=== PATIENT | female | born 1935 | race Caucasian/White ===

== ENCOUNTER 2018-06-30 13:05 | Observation (INO) | payer MEDICARE, BC ==
--- NOTE | 2018-06-30 14:49 | ER Document Report ---
ED General - General Chief Complaint: Chest Pain Stated Complaint: CHEST PAIN Time Seen by Provider: 06/30/18 14:31 TRAVEL OUTSIDE OF THE [place] IN LAST 30 DAYS: No - HPI Notes: Patient is an 82-year-old female with a history of coronary artery disease, possible stent placements in the past, hypertension, recent diagnosis of pneumonia 3 weeks ago who presents to the ED complaining of generalized mid abdominal pain that has been constant over 3 weeks. Patient also complains of chest pain only with ambulation over the last 2-3 weeks as well. Patient was evaluated at her primary care doctor's office today and want her evaluated here in the emergency department. Patient states that she did have a CT scan and workup in the past, but cannot recall the date for her abdominal pain. Patient states that initially started with diarrhea that has turned into normal stool as of now. She is still able to eat and drink without any difficulties otherwise. She is urinating a little more frequently than usual for her. Patient states that she also feels generalized weakness. 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 No other concerns or complaints at this time. Denies any headache, fever, neck pain, changes in vision/speech/mentation/hearing, URI , sore throat, palpitations, syncope, cough, shortness of breath, wheeze, dyspnea, nausea/vomiting/diarrhea, urinary retention, hematuria, back pain, loss of control of bowel or bladder, numbness/tingling, muscle paralysis, or rash. - Related Data Allergies/Adverse Reactions: hydromorphone [From Dilaudid] Allergy (Verified 07/10/16 07:34) Confusion Past Medical History - Social History Smoking Status: Former Smoker - when she was young Family History: Reviewed & Not Pertinent - Past Medical History Cardiac Medical History: Reports: Hx Heart Attack - 20 YEARS AGO WITH STENT, Hx Hypertension Pulmonary Medical History: Denies: Hx Asthma Neurological Medical History: Denies: Hx Cerebrovascular Accident, Hx Seizures GI Medical History: Reports: Hx Hiatal Hernia. Denies: Hx Hepatitis, Hx Ulcer Infectious Medical History: Denies: Hx Hepatitis Past Surgical History: Reports: Hx Hysterectomy. Denies: Hx Mastectomy, Hx Open Heart Surgery, Hx Pacemaker Review of Systems - Review of Systems -: Yes All other systems reviewed and negative Physical Exam - Vital signs Vitals: Temp Pulse Resp BP Pulse Ox 97.6 F 94 24 H 207/97 H 94 06/30/18 13:26 06/30/18 13:26 06/30/18 13:26 06/30/18 13:26 06/30/18 13:26 - Notes Notes: PHYSICAL EXAMINATION: GENERAL: Well-appearing, well-nourished and in no acute distress. A&Ox4. Answers questions appropriately. HEAD: Atraumatic, normocephalic. EYES: Pupils equal round and reactive to light, extraocular movements intact, sclera anicteric, conjunctiva are normal. ENT: Nares patent and without discharge. oropharynx clear without exudates. No tonsilar hypertrophy or erythema. Moist mucous membranes. NECK: Normal range of motion, supple without lymphadenopathy LUNGS: bibasilar rales, no wheezing HEART: irregular without murmurs, rubs, gallops. ABDOMEN: Soft, nondistended abdomen. No guarding, no rebound. Normal bowel sounds present. No CVA tenderness bilaterally. + tenderness, generalized. Musculoskeletal: FROM to passive/active. Strength 5+/5. Sandra neg. No asymmetry to LE's. Extremities: No cyanosis, clubbing, or edema b/l. Peripheral pulses 2+. Capillary refill less than 3 seconds. NEUROLOGICAL: Normal speech, normal gait. PSYCH: Normal mood, normal affect. SKIN: Warm, Dry, normal turgor, no rashes or lesions noted. Course - Re-evaluation Re-evalutation: 06/30/18 15:45 Spoke with the Angelita Shell PA-C that sent her for eval today. Pt has a h/o CKD prev Cr of 1.8, CAD with stent placement, and chronic abd pain. Angelita states that she had this same abd pain for several months and she ran a CT scan in May that was unremarkable. It is described as a general pain, but pt has declined colonoscopy and consults with GI. 06/30/18 17:34 I did get information from [place]. Pt does have a h/o CHF with EF of 55-60% in January 2017 and was 65% in 2014. She has Mitral regurge and last BNP in August 2017 was 322. Troponin in 2012- was 0.04. 06/30/18 17:43 Pt is having exertional dyspnea and CP, but nothing at rest. I did review with Dr. Calixto and we will plan to admit for CP obs/angina, elevated BNP in setting of CHF/CAD, if the delta trop is acceptable. 06/30/18 18:20 Delta trop negative. Spoke with Dr. Hairston who [facility]. Calixto did not see anything acute on abd/plev CT. Pt does go tachycardic with ambulation into the 120's and becomes symptomatic so we will not be performing any ambulatory O2 testing. Pt asymptomatic otherwise at rest. Abd CT negative. - Vital Signs Vital signs: Temp Pulse Resp BP Pulse Ox 97.6 F 94 16 142/65 H 96 06/30/18 13:26 06/30/18 13:26 06/30/18 18:31 06/30/18 18:31 06/30/18 18:31 - Laboratory Result Diagrams: 06/30/18 14:36 06/30/18 14:36 Laboratory results interpreted by me: 06/30/18 06/30/18 06/30/18 14:36 14:36 14:36 RDW 14.3 H Potassium 3.5 L Carbon Dioxide 31 H BUN 25 H Creatinine 1.67 H Est GFR ( Amer) 35 L Est GFR (Non-Af Amer) 29 L Direct Bilirubin 0.6 H NT-Pro-B Natriuret Pep 8130 H Urine Protein Urine Ketones 06/30/18 15:32 RDW Potassium Carbon Dioxide BUN Creatinine Est GFR ( Amer) Est GFR (Non-Af Amer) Direct Bilirubin NT-Pro-B Natriuret Pep Urine Protein >=500 H Urine Ketones TRACE H Discharge - Discharge Clinical Impression: Exertional chest pain CHF (congestive heart failure) Qualifiers: Heart failure type: unspecified Heart failure chronicity: acute on chronic Qualified Code(s): I50.9 - Heart failure, unspecified Chest pain Qualifiers: Chest pain type: unspecified Qualified Code(s): R07.9 - Chest pain, unspecified Condition: Stable Disposition: ADMITTED INPATIENT Admitting Provider: Hospitalist - Dr. Hairston Unit Admitted: Telemetry
[2018-06-30 14:58] LABS: ABSOLUTE LYMPHOCYTES (AUTO) 1.1 10^3/uL (0.5-4.7); ABSOLUTE MONOCYTES (AUTO) 0.7 10^3/uL (0.1-1.4); BASOPHILS % (AUTO) 0.8 % (0-2); EOSINOPHILS % (AUTO) 0.4 % (0-6); HEMATOCRIT 39.3 % (36.0-47.0); HEMOGLOBIN 13.2 g/dL (12.0-15.5); MEAN CORPUSCULAR HEMOGLOBIN 30.9 pg (27.0-33.4); MEAN CORPUSCULAR HGB CONC 33.7 g/dL (32.0-36.0); MEAN CORPUSCULAR VOLUME 92 fl (80-97); MONOCYTES % (AUTO) 12.1 % (3-13); PLATELET COUNT 174 10^3/uL (150-450); RED BLOOD COUNT 4.29 10^6/uL (3.72-5.28); RED CELL DISTRIBUTION WIDTH 14.3 % (11.5-14.0); SEGMENTED NEUTROPHILS % (AUTO) 67.7 % (42-78); TOTAL CELLS COUNTED % (AUTO) 100 %; WHITE BLOOD COUNT 5.9 10^3/uL (4.0-10.5)
[2018-06-30 15:17] LABS: ALANINE AMINOTRANSFERASE 14 U/L (9-52); ALBUMIN 3.7 g/dL (3.5-5.0); ALKALINE PHOSPHATASE 93 U/L (38-126); ANION GAP 13 (5-19); ASPARTATE AMINO TRANSFERASE 23 U/L (14-36); BILIRUBIN,DIRECT 0.6 mg/dL (0.0-0.4); BLOOD UREA NITROGEN 25 mg/dL (7-20); CALCIUM 9.7 mg/dL (8.4-10.2); CARBON DIOXIDE 31 mmol/L (22-30); CHLORIDE 98 mmol/L (98-107); GLUCOSE 103 mg/dL (75-110); LIPASE 54.3 U/L (23-300); POTASSIUM 3.5 mmol/L (3.6-5.0); SODIUM 141.8 mmol/L (137-145); TOTAL PROTEIN 6.5 g/dL (6.3-8.2)
--- NOTE | 2018-06-30 15:32 | RADIOLOGY REPORT (SQ) ---
EXAM DESCRIPTION: CHEST SINGLE VIEW COMPLETED DATE/TIME: 06/30/2018 3:16 pm REASON FOR STUDY: CP COMPARISON: Chest x-ray from [facility] done earlier in the day at 1212 hours. EXAM PARAMETERS: NUMBER OF VIEWS: One view. TECHNIQUE: Single frontal radiographic view of the chest acquired. RADIATION DOSE: NA LIMITATIONS: None. FINDINGS: LUNGS AND PLEURA: No opacities, masses or pneumothorax. No pleural effusion. MEDIASTINUM AND HILAR STRUCTURES: No masses. Contour normal. HEART AND VASCULAR STRUCTURES: Heart normal in size. Normal vasculature. BONES: No acute findings. HARDWARE: None in the chest. OTHER: No other significant finding. IMPRESSION: NO ACUTE RADIOGRAPHIC FINDING IN THE CHEST. TECHNICAL DOCUMENTATION: JOB ID: [id number] [employer]- All Rights Reserved Reading location - IP/workstation name: [email or web address]
[2018-06-30 15:41] LABS: TROPONIN I 0.093 ng/mL
[2018-06-30 15:53] LABS: APPEARANCE,URINE SLIGHTLY-CLOUDY; BILIRUBIN,URINE NEGATIVE (NEGATIVE); COLOR,URINE YELLOW; GLUCOSE, URINE NEGATIVE (NEGATIVE); KETONES,URINE TRACE mg/dL (NEGATIVE); LEUKOCYTE ESTERASE,URINE NEGATIVE (NEGATIVE); NITRITE,URINE NEGATIVE (NEGATIVE); PROTEIN,URINE >=500 mg/dL (NEGATIVE); URINE SPECIFIC GRAVITY 1.022; UROBILINOGEN,URINE NEGATIVE mg/dL (<2.0)
[2018-06-30] MEDS ORDERED: CLONIDINE HCL 0.1 MG TABLET PO ONE (17:10)
[2018-06-30] MEDS ORDERED: ATENOLOL 50 MG TABLET PO ONE (17:19)
[2018-06-30] MEDS ORDERED: FUROSEMIDE INJ/PF 20 MG/2 ML SDV IV ONE (17:36)
[2018-06-30] MEDS ORDERED: NORMAL SALINE 1000 ML 1,000 ML IV ONE (18:40)
--- NOTE | 2018-06-30 18:42 | RADIOLOGY REPORT (SQ) ---
EXAM DESCRIPTION: CT ABD/PELVIS WITH IV ORAL COMPLETED DATE/TIME: 06/30/2018 6:03 pm REASON FOR STUDY: abdominal pain COMPARISON: CT from [facility] dated 05/29/2018. TECHNIQUE: CT scan of the abdomen and pelvis performed using helical scanning technique with dynamic intravenous contrast injection. No oral contrast. Images reviewed with lung, soft tissue, and bone windows. Reconstructed coronal and sagittal MPR images reviewed. Delayed images for evaluation of the urinary system also acquired. All images stored on PACS. All CT scanners at this facility use dose modulation, iterative reconstruction, and/or weight based d osing when appropriate to reduce radiation dose to as low as reasonably achievable (ALARA). [facility]: Dose Right [facility]: CareDose [facility]: Dose Right [facility]: Teradose 4D [facility]: Car[employer] Global CONTRAST TYPE AND DOSE: contrast/concentration: Isovue 350.00 mg/ml; Total Contrast Delivered: 71.0 ml; Total Saline Delivered: 57.0 ml RENAL FUNCTION: BUN 25 creatinine 1.67. RADIATION DOSE: CT Rad equipment meets quality standard of care and radiation dose reduction techniq ues were employed. CTDIvol: 7.3 - 10.2 mGy. DLP: 914 mGy-cm.. LIMITATIONS: None. FINDINGS: LOWER CHEST: Stable chronic changes in the left lower lobe with focal volume loss and bron chiectasis. LIVER: Normal size. Stable hepatic cysts. No dilated ducts. SPLEEN: Normal size. No focal lesions. PANCREAS: No masses. No significant calcifications. No adjacent inflammation or peripancreatic fluid collections. Pancreatic duct not dilated. GALLBLADDER: No identified stones by CT criteria. No inflammatory changes to suggest cholecystitis. ADRENAL GLANDS: No significant masses or asymmetry. RIGHT KIDNEY AND URETER: No solid masses. No significant calcifications. No hydronephrosis or hyd roureter. LEFT KIDNEY AND URETER: Stable chronic atrophy. No solid masses. No significant calcifications. No hydronephrosis or hydroureter. AORTA AND VESSELS: Abdominal aorta upper limits of normal with maximum transverse measurement of 2.8 cm. Prior measurement 3.1 cm. No dissection. Renal arteries, SMA, celiac without stenosis. RETROPERITONEUM: No retroperitoneal adenopathy, hemorrhage or masses. BOWEL AND PERITONEAL CAVITY: Stable hiatal hernia. No masses or inflammatory changes. No free fluid or peritoneal masses. APPENDIX: Not visualized. PELVIS: No mass. No free fluid. Normal bladder. ABDOMINAL WALL: No masses. No hernias. BONES: No significant or acute findings. Chronic degenerative changes in the spine. Left hip prosth esis. OTHER: No other significant finding. IMPRESSION: 1. HIATAL HERNIA, UNCHANGED. 2. CHRONIC ATROPHY OF THE LEFT KIDNEY, UNCHANGED. 3. STABLE HEPATIC CYSTS. 4. STABLE CHRONIC CHANGES IN THE LEFT LUNG BASE. 5. NO ACUTE FINDINGS. TECHNICAL DOCUMENTATION: JOB ID: [id number] Quality ID # [id number]: Final reports with documentation of one or more dose reduction techniques (e.g., Au tomated exposure control, adjustment of the mA and/or kV according to patient size, use of iterative reconstruction technique) 2010 [employer]- All Rights Reserved Reading location - IP/workstation name: [email or web address]
[2018-06-30] MEDS ORDERED: NITROGLYCERIN 0.4 MG/TAB 25 TAB/BOTTLE SL PRN (19:02)
--- NOTE | 2018-06-30 19:40 | EKG REPORT ---
SEVERITY:- ABNORMAL ECG - SINUS RHYTHM LEFT ATRIAL ABNORMALITY LVH WITH SECONDARY REPOLARIZATION ABNORMALITY ANTERIOR Q WAVES, POSSIBLY DUE TO LVH LAFB : Confirmed by: Thomas Vu MD 30-Jun-2018 19:39:28
--- NOTE | 2018-06-30 19:41 | EKG REPORT ---
SEVERITY:- ABNORMAL ECG - SINUS RHYTHM LEFT ATRIAL ABNORMALITY LVH WITH SECONDARY REPOLARIZATION ABNORMALITY ANTERIOR Q WAVES, POSSIBLY DUE TO LVH : Confirmed by: Thomas Vu MD 30-Jun-2018 19:40:42
--- NOTE | 2018-06-30 19:42 | EKG REPORT ---
SEVERITY:- ABNORMAL ECG - SINUS TACHYCARDIA WITH IRREGULAR RATE 81-163 LEFT ATRIAL ABNORMALITY LVH WITH SECONDARY REPOLARIZATION ABNORMALITY ANTERIOR Q WAVES, POSSIBLY DUE TO LVH : Confirmed by: Thomas Vu MD 30-Jun-2018 19:41:02
[2018-06-30] MEDS ORDERED: POTASSIUM CHLORIDE 10 MEQ CAPSULE.ER PO ONE ×2 (20:00→23:00)
[2018-06-30] MEDS ORDERED: AMLODIPINE BESYLATE 5 MG TABLET PO ONE (20:00)
[2018-06-30] MEDS: NITROGLYCERIN 5 MG (0.2 MG/HR) PATCH.TD24 TD SCH (20:11)
[2018-06-30] MEDS: FUROSEMIDE 20 MG TABLET PO SCH (20:11)
[2018-06-30] MEDS ORDERED: ATORVASTATIN CALCIUM 80 MG TABLET PO SCH (22:00)
[2018-07-01 01:49] LABS: CREATINE KINASE MB 2.01 ng/mL (<4.55); TROPONIN I 0.09 ng/mL
--- NOTE | 2018-07-01 04:34 | PDOC H&P ---
History of Present Illness Admission Date/PCP: 06/30/18 18:45 Patient complains of: Chest pain History of Present Illness: EDWARD TUCKER is a 82 year old female with a past medical history of depression , congestive heart failure and coronary artery disease status post coronary artery bypass grafting remotely. Presents with chest pain occurring with exertion, does 3-5 intensity it is waxing and waning, nonradiating dull in nature associated with shortness of breath nausea without vomiting. Patient is unable to identify alleviating factors, denying recent cardiac stress test. In the emergency room she is found to have hypertensive urgency of 226/126, BNP of 8000, presumed acute renal failure with a creatinine of 1.6, EKG reveals sinus tachycardia and LVH by voltage. She receives atenolol and referred to the hospitalist for admission. Patient denies recent change in medications. Past Medical History Cardiac Medical History: Reports: Myocardial Infarction - 20 YEARS AGO WITH STENT, Hypertension Pulmonary Medical History: Denies: Asthma Neurological Medical History: Denies: Seizures GI Medical History: Reports: Hiatal Hernia Denies: Hepatitis Hematology: Denies: Anemia, Sickle Cell Disease Past Surgical History Past Surgical History: Reports: Coronary Artery Bypass Graft, Hysterectomy Denies: Amputation, Mastectomy, Pacemaker Social History Information Source: Patient Smoking Status: Former Smoker Last Time Smoked: 23 years ago Frequency of Alcohol Use: Rare Hx Recreational Drug Use: No Drugs: None Hx Prescription Drug Abuse: No - Advance Directive Resuscitation Status: Full Code Family History Family History: Hypertension Parental Family History Reviewed: Yes Children Family History Reviewed: Yes Sibling(s) Family History Reviewed.: Yes Medication/Allergy Home Medications: Besifloxacin HCl [Besivance 0.6% Oph Susp 5 ml] 1 drop OP ASDIR 06/19/16 Difluprednate [Durezol] 1 drop OP ASDIR 06/19/16 Nepafenac [Ilevro] 1 drop OP ASDIR 06/19/16 Paroxetine HCl [Paxil Cr 25 Mg Tab.Sr] 25 mg PO DAILY 06/19/16 Zolpidem Tartrate [Ambien 5 mg Tablet] 5 mg PO HSP PRN 06/19/16 Acetaminophen 1,000 mg PO ASDIR PRN 07/23/16 Atenolol/Chlorthalidone [Atenolol-Chlorthal 50-25 Tb] 1 tab PO DAILY 07/23/16 Dexlansoprazole [Dexilant 60 mg Capsule] 60 mg PO Q2DAYS 07/23/16 Esomeprazole Magnesium [Nexium] 20 mg PO Q2DAYS 07/23/16 Ibuprofen 200 mg PO ASDIR PRN 07/23/16 Allergies/Adverse Reactions: hydromorphone [From Dilaudid] Allergy (Verified 07/10/16 07:34) Confusion Review of Systems Constitutional: ABSENT: chills, fever(s), headache(s), weight gain, weight loss Eyes: ABSENT: visual disturbances Ears: ABSENT: hearing changes Cardiovascular: ABSENT: chest pain, dyspnea on exertion, edema, orthropnea, palpitations Respiratory: ABSENT: cough, hemoptysis Gastrointestinal: ABSENT: abdominal pain, constipation, diarrhea, hematemesis, hematochezia, nausea, vomiting Genitourinary: ABSENT: dysuria, hematuria Musculoskeletal: ABSENT: joint swelling Integumentary: ABSENT: rash, wounds Neurological: ABSENT: abnormal gait, abnormal speech, confusion, dizziness, focal weakness, syncope Psychiatric: ABSENT: anxiety, depression, homidical ideation, suicidal ideation Endocrine: ABSENT: cold intolerance, heat intolerance, polydipsia, polyuria Hematologic/Lymphatic: ABSENT: easy bleeding, easy bruising Physical Exam Vital Signs: Temp Pulse Resp BP Pulse Ox 98.0 F 102 H 16 136/61 H 94 07/01/18 03:24 07/01/18 03:24 07/01/18 03:24 07/01/18 03:24 07/01/18 03:24 Intake & Output 06/29/18 06/30/18 07/01/18 11:59 11:59 11:59 Intake Total 1000 Balance 1000 Weight 62 kg General appearance: PRESENT: mild distress, well-developed, well-nourished Head exam: PRESENT: atraumatic, normocephalic Eye exam: PRESENT: conjunctiva pink, EOMI, PERRLA. ABSENT: scleral icterus Ear exam: PRESENT: normal external ear exam Mouth exam: PRESENT: moist, tongue midline Neck exam: ABSENT: carotid bruit, JVD, lymphadenopathy, thyromegaly Respiratory exam: PRESENT: clear to auscultation jerica, crackles. ABSENT: rales, rhonchi, wheezes Cardiovascular exam: PRESENT: gallop, RRR, +S1, +S2. ABSENT: diastolic murmur, rubs, systolic murmur Pulses: PRESENT: normal dorsalis pedis pul Vascular exam: PRESENT: normal capillary refill GI/Abdominal exam: PRESENT: normal bowel sounds, soft. ABSENT: distended, guarding, mass, organolmegaly, rebound, tenderness Rectal exam: PRESENT: deferred Extremities exam: PRESENT: full ROM. ABSENT: calf tenderness, clubbing, pedal edema Neurological exam: PRESENT: alert, awake, oriented to person, oriented to place , oriented to time, oriented to situation, CN II-XII grossly intact. ABSENT: motor sensory deficit Psychiatric exam: PRESENT: appropriate affect, normal mood. ABSENT: homicidal ideation, suicidal ideation Skin exam: PRESENT: dry, intact, warm. ABSENT: cyanosis, rash Results Laboratory Results: 06/30/18 23:28 CK-MB (CK-2) 2.01 Troponin I 0.090 Impressions: Abdomen/Pelvis CT 06/30/18 00:00 IMPRESSION: 1. HIATAL HERNIA, UNCHANGED. 2. CHRONIC ATROPHY OF THE LEFT KIDNEY, UNCHANGED. 3. STABLE HEPATIC CYSTS. 4. STABLE CHRONIC CHANGES IN THE LEFT LUNG BASE. 5. NO ACUTE FINDINGS. Chest X-Ray 06/30/18 14:32 IMPRESSION: NO ACUTE RADIOGRAPHIC FINDING IN THE CHEST. Assessment & Plan - Diagnosis (1) Hypertensive urgency Is this a current diagnosis for this admission?: Yes Plan: Nitrates and BRITTANI inhibitor as needed (2) Exertional chest pain Is this a current diagnosis for this admission?: Yes Plan: History of coronary artery disease, chest pain care set, Cardiolite stress test ordered, follow-up serial cardiac enzymes and lipid profile (3) Acute renal failure Is this a current diagnosis for this admission?: Yes Plan: Unclear duration, no history available, avoid nephrotoxic meds and doses reevaluate chemistry (4) CHF (congestive heart failure) Qualifiers: Heart failure type: unspecified Heart failure chronicity: acute on chronic Qualified Code(s): I50.9 - Heart failure, unspecified Is this a current diagnosis for this admission?: Yes Plan: Likely secondary to uncontrolled hypertension, diuresis and blood pressure control, follow-up TSH - Time Time Spent: 50 to 70 Minutes - Inpatient Certification Medical Necessity: Need Close Monitoring Due to Risk of Patient Decompensation
[2018-07-01 05:46] LABS: ABSOLUTE BASOPHILS # (AUTO) 0.1 10^3/uL (0.0-0.2); ABSOLUTE EOSINOPHILS # (AUTO) 0.1 10^3/uL (0.0-0.6); ABSOLUTE MONOCYTES (AUTO) 0.6 10^3/uL (0.1-1.4); ABSOLUTE NEUT (AUTO) 2.8 10^3/uL (1.7-8.2); BASOPHILS % (AUTO) 1.2 % (0-2); EOSINOPHILS % (AUTO) 2.4 % (0-6); HEMATOCRIT 33.5 % (36.0-47.0); HEMOGLOBIN 11.2 g/dL (12.0-15.5); LYMPHOCYTES % (AUTO) 22.3 % (13-45); MEAN CORPUSCULAR HEMOGLOBIN 30.6 pg (27.0-33.4); MEAN CORPUSCULAR HGB CONC 33.4 g/dL (32.0-36.0); MEAN CORPUSCULAR VOLUME 92 fl (80-97); MONOCYTES % (AUTO) 13.3 % (3-13); PLATELET COUNT 140 10^3/uL (150-450); RED BLOOD COUNT 3.66 10^6/uL (3.72-5.28); RED CELL DISTRIBUTION WIDTH 14.2 % (11.5-14.0); SEGMENTED NEUTROPHILS % (AUTO) 60.8 % (42-78); TOTAL CELLS COUNTED % (AUTO) 100 %; WHITE BLOOD COUNT 4.6 10^3/uL (4.0-10.5)
[2018-07-01 06:14] LABS: ANION GAP 8 (5-19); BLOOD UREA NITROGEN 20 mg/dL (7-20); CARBON DIOXIDE 28 mmol/L (22-30); CHLORIDE 103 mmol/L (98-107); CREATINE KINASE 33 U/L (30-135); GLUCOSE 92 mg/dL (75-110); POTASSIUM 4.3 mmol/L (3.6-5.0); SODIUM 138.9 mmol/L (137-145)
[2018-07-01 06:17] LABS: CREATINE KINASE MB 1.84 ng/mL (<4.55); TROPONIN I 0.068 ng/mL
[2018-07-01] MEDS ORDERED: REGADENOSON INJ 0.4 MG/5 ML DISP.SYRIN IV ONE (09:34)
--- NOTE | 2018-07-01 10:00 | Physician Advisory Note ---
Physician Advisor ProgressNote .: Pursuant to the plan for Farhad Hernandez, I have reviewed the medical record for this patient. Physician Advisor Statement: Pt w/no prior Cr levels in [facility] to know a baseline. Given Lasix IV & then 1L IVF in ED. Please consider documenting, if you agree: 1. "Hypertensive EMERGENCY, CAUSING " [HESHAM/angina/acute CHF/CP/SOB], vs "hypertensive URGENCY" [i.e. no sx] 2. "Acute on chronic diastolic CHF, evidenced by " [Are rales & GILLIAM acute for this pt, or chronic? Any other s/s? - If (+) acute CHF, what is reason the diuretic is very low dose and po in this setting? - or "Chronic diastolic CHF; acute CHF ruled out" 3. "Exertional CP, suspect due to " - angina? severe HTN? ... 4. "Chronic/acute/subacute abd pain, suspect due to " [?acute/chronic mesenteric ischemia? constipation? ... vs unknown cause ...] 5. Medical necessity: If this Medicare pt is not felt to be clinically safe for d/c later tonight (after 1MN in hospital care already), please document the ongoing attg concerns/clinical issues, & may change to Inpatient status. Thanks! CK
[2018-07-01] MEDS: NITROGLYCERIN 5 MG (0.2 MG/HR) PATCH.TD24 TD SCH (11:01)
[2018-07-01] MEDS: FUROSEMIDE 20 MG TABLET PO SCH (11:08)
[2018-07-01] MEDS: MAGNESIUM SULFATE/D5W 1 GM/100 ML RTUPB IV SCH ×2 (12:30→13:59)
[2018-07-01 12:51] LABS: CREATINE KINASE MB 2.28 ng/mL (<4.55); TROPONIN I 0.059 ng/mL
--- NOTE | 2018-07-01 12:52 | DRAGON STRESS TEST REPORT ---
Intravenous Lexiscan Cardiolite stress test using single photon emmision computerized tomography. Date of procedure: 07/01/2018. Ordering Provider: Dr. Jorge Chacon.Patient's status: Inpatient Indication: Chest pain. Coronary risk factors: Age, history of coronary artery disease, old myocardial infarction, history of coronary artery bypass graft surgery, hypertension, dyslipidemia, and family history of coronary artery disease. Resting EKG: Sinus Rhythm. Diffuse T wave inversion consistent with ischemia. Stress EKG: No changes . Reason for termination: Protocol. The patient had no chest pain, and there was no chest discomfort. No arrhythmias seen. Conclusions: Normal EKG and hemodynamic response to IV Lexiscan. Nuclear data: At rest the patient was given 10.30 millicuries of technetium 99m sestamibi injected intravenously. As per protocol rest non gated SPECT images were obtained. Subsequently the patient was given intravenous Lexiscan at a dose of 0.4 mg in 5 mL intravenously, followed by flush with normal saline. Subsequently the stress dose of 32.8 millicuries of technetium 99m sestamibi was injected intravenously. As per protocol stress gated images were obtained. Nuclear interpretation: Review of images showed that all segments of the myocardium had normal perfusion at rest, and normal perfusion post stress with IV Lexiscan. All segments of the myocardium had normal thickening by gated study. The left ventricle was mildly enlarged, and there was mild global hypokinesis. T. I D. ratio was normal at 1.18. Computer read rest, and stress left ventricular ejection fraction were 40 %, and 46 %, respectively. Visually both the stress and rest ejection fractions were mildly reduced at 50%. Conclusion: 1. There is no scintigraphic evidence of Lexiscan induced myocardial ischemia. 2. There is no scintigraphic evidence of myocardial infarction/scar. 3. Cardiomyopathy with mildly reduced LV ejection fraction. Recommendation: Maximize Anti-CAD Medication. Aggressive Risk Factor Modification, and Treatment of Underlying Comorbidities. Would Recommend Checking an Echo for LV Ejection Fraction Correlation. Discussed This with Dr. Rodriguez, the hospitalist, and spoke to Dr. Antoni Gifford on the telephone and discussed above. Dr. Velez who is the patient's handstitching machine armhole feller, will follow up with the patient. PEARL
--- NOTE | 2018-07-01 14:16 | PDOC DISCHARGE SUMMARY ---
General - Admit/Disc Date/PCP Admission Date/Primary Care Provider: 06/30/18 18:45 Discharge Date: 07/01/18 - Discharge Diagnosis (1) Acute renal failure Is this a current diagnosis for this admission?: Yes (2) CHF (congestive heart failure) Is this a current diagnosis for this admission?: Yes (3) Chest pain Is this a current diagnosis for this admission?: Yes (4) Hypertensive urgency Is this a current diagnosis for this admission?: No (5) Hypertensive emergency Is this a current diagnosis for this admission?: Yes - Additional Information Resuscitation Status: Full Code Discharge Diet: Cardiac Discharge Activity: Activity As Tolerated, Balance Activity w/Rest, Weigh Daily Prescriptions: Furosemide [Lasix 20 mg Tablet] 20 mg PO DAILY #30 tablet Home Medications: Atenolol [Tenormin 50 mg Tablet] 50 mg PO DAILY 07/01/18 Furosemide [Lasix 20 mg Tablet] 20 mg PO DAILY #30 tablet 07/01/18 Losartan Potassium [Cozaar 25 mg Tablet] 50 mg PO DAILY #0 07/01/18 Mupirocin [Bactroban 2% Ointment 22 gm] 1 applic TOP BID 07/01/18 Ranitidine HCl [Zantac 150 mg Tablet] 150 mg PO Q12 07/01/18 Zolpidem Tartrate [Ambien] 10 mg PO QHS 07/01/18 History of Present Illness Patient complains of: Difficulty breathing and shortness of breath History of Present Illness: EDWARD TUCKER is a 82 year old female Admitted with difficulty breathing and shortness of breath as well as chest pain. She was found to be in decompensated CHF. She was also in hypertensive emergency. She was admitted for further management by the hospitalist service Hospital Course Hospital Course: Patient was started on Lasix. She had a stress test done today which revealed no acute findings. Echocardiogram was deferred as outpatient as patient apparently had one done recently and she has a known valvular heart disease. In fact she was up in [place] just a few months ago when she states she saw 4 tipple oiler in regards to possible what sounds like a mitral valve replacement. At the end of the day patient decided against this and she does not want any surgical intervention. As such patient has been referred back to her tipple oiler Dr. Gifford. Dr. Méndez also help to coordinate this patient is satisfied with following up with her tipple oiler at this time. Her symptoms overnight to have resolved. Her breathing is back to baseline. She was given 2 g of magnesium due to hypomagnesemia and she is also being discharged with Lasix for outpatient management and adjustment as needed. Blood pressure will also need further adjustments of her antihypertensive Physical Exam Vital Signs: Temp Pulse Resp BP Pulse Ox 97.8 F 60 18 148/47 H 95 07/01/18 11:52 07/01/18 11:52 07/01/18 11:52 07/01/18 11:52 07/01/18 11:52 Intake & Output 06/30/18 07/01/18 07/02/18 06:59 06:59 06:59 Intake Total 1000 100 Balance 1000 100 Weight 62 kg General appearance: PRESENT: no acute distress, well-developed, well-nourished Head exam: PRESENT: atraumatic, normocephalic Eye exam: PRESENT: conjunctiva pink, EOMI, PERRLA. ABSENT: scleral icterus Ear exam: PRESENT: normal external ear exam Mouth exam: PRESENT: moist, tongue midline Neck exam: ABSENT: carotid bruit, JVD, lymphadenopathy, thyromegaly Respiratory exam: PRESENT: clear to auscultation jerica. ABSENT: rales, rhonchi, wheezes Cardiovascular exam: PRESENT: RRR, +S1, +S2, systolic murmur. ABSENT: diastolic murmur, rubs Pulses: PRESENT: normal dorsalis pedis pul Vascular exam: PRESENT: normal capillary refill GI/Abdominal exam: PRESENT: normal bowel sounds, soft. ABSENT: distended, guarding, mass, organolmegaly, rebound, tenderness Rectal exam: PRESENT: deferred Extremities exam: PRESENT: full ROM. ABSENT: calf tenderness, clubbing, pedal edema Neurological exam: PRESENT: alert, awake, oriented to person, oriented to place , oriented to time, oriented to situation, CN II-XII grossly intact. ABSENT: motor sensory deficit Psychiatric exam: PRESENT: appropriate affect, normal mood. ABSENT: homicidal ideation, suicidal ideation Skin exam: PRESENT: dry, intact, warm. ABSENT: cyanosis, rash Results Laboratory Results: 07/01/18 05:21 07/01/18 05:21 07/01/18 07/01/18 05:21 05:21 WBC 4.6 RBC 3.66 L Hgb 11.2 L Hct 33.5 L MCV 92 MCH 30.6 MCHC 33.4 RDW 14.2 H Plt Count 140 L Seg Neutrophils % 60.8 Lymphocytes % 22.3 Monocytes % 13.3 H Eosinophils % 2.4 Basophils % 1.2 Absolute Neutrophils 2.8 Absolute Lymphocytes 1.0 Absolute Monocytes 0.6 Absolute Eosinophils 0.1 Absolute Basophils 0.1 Sodium 138.9 Potassium 4.3 Chloride 103 Carbon Dioxide 28 Anion Gap 8 BUN 20 Creatinine 1.43 H Est GFR ( Amer) 42 L Est GFR (Non-Af Amer) 35 L Glucose 92 Calcium 9.0 06/30/18 07/01/18 07/01/18 23:28 05:21 05:21 Creatine Kinase 33 CK-MB (CK-2) 2.01 1.84 Troponin I 0.090 0.068 07/01/18 11:49 Creatine Kinase CK-MB (CK-2) 2.28 Troponin I 0.059 Impressions: Abdomen/Pelvis CT 06/30/18 00:00 IMPRESSION: 1. HIATAL HERNIA, UNCHANGED. 2. CHRONIC ATROPHY OF THE LEFT KIDNEY, UNCHANGED. 3. STABLE HEPATIC CYSTS. 4. STABLE CHRONIC CHANGES IN THE LEFT LUNG BASE. 5. NO ACUTE FINDINGS. Chest X-Ray 06/30/18 14:32 IMPRESSION: NO ACUTE RADIOGRAPHIC FINDING IN THE CHEST. Qualifiers - * PATIENT BEING DISCHARGED WITH ANY OF THE FOLLOWING DIAGNOSIS: No, Heart Failure HF Pt being discharged on ACEI for LVEF less than 40%?: No Reason(s) for not prescribing ACEI:: Not indicated HF Pt being discharged on ARBS for LVEF less than 40%?: Yes HF Pt with Afib discharged with Warfarin?: No Reason(s) for not prescribing Warfarin:: Not indicated HF Pt discharged on evidence-based Beta [place]:: Yes Plan Discharge Plan: Follow up with Dr. Gifford for further management and referral as appropriate Time Spent: Less than 30 Minutes
[2018-07-01 16:27] VITALS: BP 144/81
== END 2018-07-01 17:03 | disposition home or self-care (01) ==
LOC: ER 13:05 → INTOOBSV 18:45 → EH 18:45 → 4N 22:45
PROVIDERS: ADMIT Internal Medicine; ATTEND Internal Medicine
DX: N17.9 Acute kidney failure, unspecified (principal); I16.1 Hypertensive emergency; R07.9 Chest pain, unspecified; I11.0 Hypertensive heart disease with heart failure; I50.9 Heart failure, unspecified; I13.0 Hypertensive heart and chronic kidney disease with heart failure and stage 1 through stage 4 chronic kidney disease, or unspecified chronic kidney disease; N18.9 Chronic kidney disease, unspecified; I25.10 Atherosclerotic heart disease of native coronary artery without angina pectoris; R00.0 Tachycardia, unspecified; R19.7 Diarrhea, unspecified; G89.29 Other chronic pain; R10.84 Generalized abdominal pain; Z95.1 Presence of aortocoronary bypass graft; I25.2 Old myocardial infarction; Z95.5 Presence of coronary angioplasty implant and graft; Z87.891 Personal history of nicotine dependence; Z82.49 Family history of ischemic heart disease and other diseases of the circulatory system; Z79.899 Other long term (current) drug therapy; Z87.01 Personal history of pneumonia (recurrent)
CPT/HCPCS: 93005; 99285; 36415 ×2; 82553 ×2; 82550; 83690; 83735; 84443; 85025 ×2; 80048; 80053; 81001; 84484 ×2; 83880; 93017; 71045; 78452; 74177; 93010; G0378 ×3; A9500; J2785; A9270 ×5; J3475; J3490; J7030; Q9969